=== PATIENT | female | born 1990 | race Caucasian/White ===

== ENCOUNTER → 2017-10-30 | Outpatient (REF) | payer OTHER ==
[2017-10-30 18:55] LABS: FREE T4 0.93 NG/DL (0.76-1.46)
[2017-10-30 19:02] LABS: HCG, SERUM QUANTITATIVE 13107 MIU/ML
[2017-10-31 08:23] LABS: PROGESTERONE 20.8 NG/ML
[2017-10-31 08:23] LABS: PROLACTIN 15.3 NG/ML
== END ==
LOC: M SFHCLERA 16:11
DX: Z3A.01 Less than 8 weeks gestation of pregnancy (principal)

== ENCOUNTER → 2017-11-08 | Outpatient (CLI) | payer BC, OTHER | LOC: M RAD 17:36 | DX: Z36.89 Encounter for other specified antenatal screening (principal); Z3A.01 Less than 8 weeks gestation of pregnancy | CPT/HCPCS: 76801 ==

== ENCOUNTER → 2017-12-15 | Outpatient (REF) | payer OTHER | LOC: M LAB REF 17:03 | DX: Z34.81 Encounter for supervision of other normal pregnancy, first trimester (principal) ==

== ENCOUNTER → 2018-01-18 | Outpatient (CLI) | payer OTHER | LOC: M LRY 16:32 | DX: Z36.89 Encounter for other specified antenatal screening (principal); Z3A.00 Weeks of gestation of pregnancy not specified | CPT/HCPCS: 36415 ==

== ENCOUNTER → 2018-01-27 | Outpatient (CLI) | payer BC, OTHER | LOC: M RAD 17:26 | DX: Z36.9 Encounter for antenatal screening, unspecified (principal); Z3A.18 18 weeks gestation of pregnancy | CPT/HCPCS: 76811 ==

== ENCOUNTER → 2018-02-21 | Outpatient (CLI) | payer BC, OTHER | LOC: M RAD 17:30 | DX: O32.1XX0 Maternal care for breech presentation, not applicable or unspecified (principal); Z3A.21 21 weeks gestation of pregnancy | CPT/HCPCS: 76816 ==

== ENCOUNTER → 2018-03-31 | Outpatient (CLI) | payer BC, OTHER ==
[2018-03-31 20:13] LABS: HEMATOCRIT 37.3 % (36.0-47.0); HEMOGLOBIN 12.3 g/dl (12.0-15.5); MEAN CORPUSCULAR HEMOGLOBIN 32.2 pg (27.0-33.0); MEAN CORPUSCULAR VOLUME 97.6 fl (80.0-96.0); PLATELET COUNT, AUTOMATED 234 10^3/uL (150-450); RED BLOOD COUNT 3.82 10^6/uL (4.00-5.40); RED CELL DISTRIBUTION WIDTH 12.9 % (11.5-14.5); WHITE BLOOD COUNT 11.9 10^3/uL (4.0-10.0)
[2018-03-31 20:27] LABS: GLUCOSE CHALLENGE TEST 1 HOUR 112 MG/DL (LESS THAN 140)
== END ==
LOC: M LRY 14:25
DX: Z34.82 Encounter for supervision of other normal pregnancy, second trimester (principal)
CPT/HCPCS: 82950

== ENCOUNTER → 2018-06-08 | Outpatient (REF) | payer OTHER ==
[~2018-06-08] MED LIST: IBUP60TA PO; MAPA500T2 PO
== END ==
LOC: M LAB REF 12:21
PROVIDERS: ATTEND Advanced Practice Midwife
DX: Z34.83 Encounter for supervision of other normal pregnancy, third trimester (principal)

== ENCOUNTER 2018-06-28 15:20 | Inpatient (IN) | payer BC, OTHER ==
[2018-06-28] VITALS (12 sets, daily range): BP systolic 120–146; BP diastolic 58–96
[~2018-06-28] VITALS: Ht 162.6 cm; Wt 75.4 kg
[2018-06-28] MEDS ORDERED: PRENTAB9 PO (15:39)
[2018-06-28] MEDS ORDERED: TUMS500C PO (15:39)
[2018-06-28 16:48] LABS: HEMOGLOBIN 14.1 g/dl (12.0-15.5); MEAN CORPUSCULAR HEMOGLOBIN 31.5 pg (27.0-33.0); MEAN CORPUSCULAR HGB CONC 34.4 g/dl (32.0-36.5); MEAN CORPUSCULAR VOLUME 91.5 fl (80.0-96.0); PLATELET COUNT, AUTOMATED 184 10^3/uL (150-450); RED BLOOD COUNT 4.48 10^6/uL (4.00-5.40); WHITE BLOOD COUNT 12.3 10^3/uL (4.0-10.0)
--- NOTE | 2018-06-28 16:48 | HPE ---
DATE OF ADMISSION: 06/28/2018 Marjorie is a 28-year-old 3, para 1-0-1-1 at 40-1/7 weeks gestation with an estimated date of confinement (EDC) of 06/27/2017 based on last menstrual period and confirmed by a first-trimester ultrasound. She presents to labor and delivery with report of contractions that started at 0500 this morning. They have progressively become more uncomfortable and closer together. She reports them about every 5 minutes. She does report some light pink spotting this morning. She denies leakage of fluid, and the fetus has been active throughout the day. Her care was initiated at [facility] in the first trimester. Her course complicated by a history of asthma with rare inhaler use. OBSTETRICAL HISTORY: December 2014, a 40-3/7 weeks gestation, 7-pound 13-ounce male, vaginal delivery. May 2017, spontaneous miscarriage. OBSTETRIC LABORATORIES: O positive, antibody screen negative. Pap normal, rubella immune, VDRL nonreactive. Urine culture negative. Hepatitis B surface antigen negative, HIV negative. Hepatitis C antibody nonreactive. Gonorrhea and chlamydia negative. She declined genetic serum screening labs. Gestational diabetic screening normal at 112, and her GBS is negative. PAST MEDICAL HISTORY: History of asthma. Again, rare inhaler use. SURGERIES: None. Childhood varicella. FAMILY HISTORY: Diabetes, hypertension. SOCIAL HISTORY: The patient is . Her is at bedside and supportive. She is a nonsmoker. She denies alcohol and drug use. There is no history of any sexually transmitted infections, and she denies history of abuse, physical, sexual, and emotional. ALLERGIES: SULFA. CURRENT MEDICATIONS: vitamins OBJECTIVE: Temperature 97.9, pulse 86, respirations 18. Initial blood pressure 138/93 with a repeat of 130/77. She appears mildly uncomfortable with her contractions. heart rate is 130, moderate variability. Positive accelerations. No decelerations observed. Contractions about every 5 minutes. Sterile vaginal exam: 4-5 cm dilated, 90% effaced, -1 station. Membranes are intact. Light bloody show, mid position, and soft. Her abdomen is gravid, cephalic presentation with an estimated weight of 8 pounds. ASSESSMENT: Intrauterine at 40-1/7 weeks. heart rate category 1, early latent labor. PLAN: Admit the patient to labor and delivery. Routine labs. Out of bed ad elie. Regular diet at this time. The patient is desiring physiologic labor. Declines epidural or pain medication. I have encouraged her to utilize hydrotherapy and out of bed positions. We did review discussion of potentially augmenting her labor with intravenous (IV) Pitocin or AROM if necessary . I do anticipate labor progress and a spontaneous vaginal delivery. MTDD
[2018-06-28] MEDS ORDERED: OXYTOCIN 30 UNITS IN 0.9% NaCl 500ML IV BAG (J2590) As Ordered ONE (19:31)
[2018-06-29] VITALS (7 sets, daily range): BP systolic 108–129; BP diastolic 57–81
[2018-06-29] MEDS ORDERED: OXYTOCIN DRIP 30 UNITS in APPROPRIATE DILUENT 1 EA IV SCH (00:34)
[2018-06-29] MEDS ORDERED: ACETAMINOPHEN 500 MG TAB PO PRN (00:45)
[2018-06-29] MEDS ORDERED: ONDANSETRON 4MG/2ML VIAL (J2405) IV PRN (00:45)
[2018-06-29] MEDS ORDERED: DIBUCAINE 1% OINTMENT 30GM TOP PRN (00:45)
[2018-06-29] MEDS ORDERED: METHYLERGONOVINE MALEATE 0.2 MG TAB PO PRN (00:45)
[2018-06-29] MEDS ORDERED: RHOGAM 300 MCG (1500 IU) INJ (J2790) IM SCH (00:45)
[2018-06-29] MEDS ORDERED: IBUPROFEN 800 MG TAB PO PRN (00:45)
[2018-06-29] MEDS ORDERED: DOCUSATE SODIUM 100 MG CAP PO PRN (00:45)
[2018-06-29] MEDS ORDERED: MEASLES,MUMPS,RUBELLA VACCINE INJ (MMR-II) (90707) SC SCH (00:45)
--- NOTE | 2018-06-29 06:33 | DN ---
DATE OF DELIVERY: 06/28/2018 Marjorie is a 28-year-old 3, para 2-0-1-2 now who was admitted to labor and delivery in labor. She coped with her labor physiologically. She had assisted rupture of membranes at 2030. She did reach full dilation at 2304. She pushed to a normal spontaneous vaginal delivery of a live female in OA position with restitution to ROT position at 231. There was a nuchal cord times one tight that was reduced with a somersault maneuver at the time of delivery. was placed on maternal abdomen crying and active. Mouth and nares were bulb suctioned. The cord was clamped times two once pulsations ceased and cut by the father of the baby under my direction. Manual removal of an intact placenta with three-vessel cord by Chen mechanism was at 2330. Uterine hemostasis achieved with IV Pitocin rapid infusion and uterine fundal massage. Her bladder was straight cath for 200 mL of dark yellow urine. Perineum and vagina were inspected and noted to be intact. female weighed 3660 grams, 8 pounds 1 ounce, 8 and 9. Mom is going to breastfeed her daughter. The family is undecided as to what they are going to name their daughter at this time. At the close of delivery, lap counts, needle counts and instrument counts were correct and verified.
[2018-06-29] MEDS: PRENATAL VITAMINS CHEWABLE TABLET PO SCH (09:42)
[2018-06-30 06:00] VITALS: BP 120/68
[2018-06-30] MEDS: PRENATAL VITAMINS CHEWABLE TABLET PO SCH (07:33)
[2018-06-30] MEDS ORDERED: IBUP-1114 PO (10:07)
[2018-06-30] MEDS ORDERED: COLA100C5 PO (10:07)
[2018-06-30] MEDS ORDERED: MAPA500T2 PO (10:07)
== END 2018-06-30 13:10 | disposition home or self-care (01) | DRG 541 ==
LOC: M LDO 15:20 → M LDI 16:04 → M OBS 06-29 01:36
PROVIDERS: ADMIT Advanced Practice Midwife; ATTEND Advanced Practice Midwife
PROC: 10E0XZZ Delivery of Products of Conception, External Approach (ICD-10-PCS; principal; 2018-06-28)
PROC: 10D17Z9 Manual Extraction of Products of Conception, Retained, Via Natural or Artificial Opening (ICD-10-PCS; 2018-06-28)
PROC: 10907ZC Drainage of Amniotic Fluid, Therapeutic from Products of Conception, Via Natural or Artificial Opening (ICD-10-PCS; 2018-06-28)
DX: O48.0 Post-term pregnancy (principal); O69.89X0 Labor and delivery complicated by other cord complications, not applicable or unspecified; Z37.0 Single live birth; Z3A.40 40 weeks gestation of pregnancy; O73.0 Retained placenta without hemorrhage

== ENCOUNTER → 2018-09-19 | Outpatient (REF) | payer BC, OTHER ==
[~2018-09-19] MED LIST changes: +COLA100C5 PO; +IBUP-1114 PO; +IBUP600T42 PO; -IBUP60TA PO; +PRENTAB9 PO; +TUMS500C PO
== END ==
LOC: M LAB REF 17:52
PROVIDERS: ATTEND Advanced Practice Midwife
DX: Z12.4 Encounter for screening for malignant neoplasm of cervix (principal)

== ENCOUNTER → 2019-07-31 | Outpatient (CLI) | payer BC, OTHER ==
--- NOTE | 2019-07-31 19:53 | REPVR ---
PROCEDURE INFORMATION: Exam: MR Head Without Contrast Exam date and time: 07/31/2019 7:05 PM Age: 29 years old Clinical indication: Pain; Headache not specified; Patient HX: PT states h/a; Additional info: Migraine w/ ora TECHNIQUE: Imaging protocol: MR of the head without contrast. COMPARISON: No relevant prior studies available. FINDINGS: Ventricles demonstrate normal size and configuration. Major vascular flow voids at the skull base are preserved. No extra-axial fluid collection. No midline shift or intracranial mass effect. No pathologic white-matter signal or cerebral edema. No diffusion restriction. Visualized paranasal sinuses and mastoid air cells are clear. IMPRESSION: Unremarkable MRI of the brain without contrast. Electronically signed by: Keron Fields On 07/31/2019 19:53:17 PM
== END ==
LOC: M RAD 18:06
PROVIDERS: ATTEND Family Medicine
DX: G43.109 Migraine with aura, not intractable, without status migrainosus (principal)

== ENCOUNTER → 2019-12-03 | Outpatient (REF) | payer OTHER | LOC: M SFHCWAGY 17:08 | PROVIDERS: ATTEND Advanced Practice Midwife | DX: Z12.4 Encounter for screening for malignant neoplasm of cervix (principal); R87.610 Atypical squamous cells of undetermined significance on cytologic smear of cervix (ASC-US) | CPT/HCPCS: 87624; G0123 ==

== ENCOUNTER → 2021-03-27 | Outpatient (CLI) | payer OTHER ==
[2021-03-27 14:34] LABS: BASO % 0.2 % (0.0-1.0); EOS % 0.3 % (0.0-3.0); HEMATOCRIT 42.9 % (36.0-47.0); HEMOGLOBIN 14.5 g/dl (12.0-15.5); MEAN CORPUSCULAR HEMOGLOBIN 30.7 pg (27.0-33.0); MEAN CORPUSCULAR HGB CONC 33.8 g/dl (32.0-36.5); MEAN CORPUSCULAR VOLUME 90.9 fl (80.0-96.0); MONO # 0.7 10^3/uL (0.0-0.8); MONO % 5.2 % (2.0-8.0); NEUTROPHILS # 10.6 10^3/uL (1.5-8.5); NEUTROPHILS % 78.9 % (36.0-66.0); PLATELET COUNT, AUTOMATED 282 10^3/uL (150-450); RED BLOOD COUNT 4.72 10^6/uL (4.00-5.40); WHITE BLOOD COUNT 13.4 10^3/uL (4.0-10.0)
[2021-03-27 15:43] LABS: HEPATITIS C VIRUS ABY INDEX < 0.0 INDEX (<0.8); HIV 1&2 SCREEN CENTAUR NEGATIVE (NEGATIVE)
[2021-03-27 15:52] LABS: GC DNA AMPLIFICATION NEGATIVE (NEGATIVE)
== END ==
LOC: M PLALAB 10:20
PROVIDERS: ATTEND Advanced Practice Midwife
DX: Z34.91 Encounter for supervision of normal pregnancy, unspecified, first trimester (principal)

== ENCOUNTER → 2021-06-10 | Outpatient (CLI) | payer BC, OTHER ==
--- NOTE | 2021-06-10 09:49 | REP ---
INDICATION: ANATOMY COMPARISON: None. TECHNIQUE: Transabdominal obstetrical ultrasound with color Doppler evaluation. FINDINGS: Examination demonstrates a single live intrauterine in variable presentation. motion is identified by technologist. Placenta is noted anterior and grade 0 without evidence for placenta previa or abruption. Amniotic fluid volume is normal. Cervix measures 4.7 cm in length and appears closed.. Selected gestational age: 20 weeks 3 days with BONNY 10/25/2021. Gestational age by current measurements 20 weeks 2 days with BONNY 10/26/2021. FHR equals 150 beats per minute. Estimated weight 324 grams (23rdpercentile). Anatomical assessment demonstrates normal structures including cranium, choroid plexus, cavum, cerebellum/posterior fossa, facial features, lungs, four-chamber heart/ventricular outflow tracts, diaphragm, stomach, cord insertion/three-vessel cord, kidneys/bladder, spine, and extremities. IMPRESSION: Single live intrauterine in variable presentation demonstrating appropriate estimated weight/growth. Anatomical assessment is complete and normal. <Electronically signed by Daniel Tejada > 06/10/21 0906
== END ==
LOC: M WHC 08:04
PROVIDERS: ATTEND Advanced Practice Midwife
DX: Z34.92 Encounter for supervision of normal pregnancy, unspecified, second trimester (principal); Z3A.20 20 weeks gestation of pregnancy

== ENCOUNTER → 2021-10-09 | Outpatient (REF) | payer BC, OTHER | LOC: M SFHCWAGY 13:11 | PROVIDERS: ATTEND Obstetrics & Gynecology | DX: Z36.85 Encounter for antenatal screening for Streptococcus B (principal) ==

== ENCOUNTER 2021-10-28 23:01 | Inpatient (IN) | payer BC, OTHER ==
[~2021-10-28] VITALS: Ht 162.6 cm; Wt 77.3 kg
[2021-10-28] MEDS ORDERED: HOME MED LIST COMPLETE! XX SCH (23:25)
[2021-10-28 23:27] VITALS: BP 133/76
[2021-10-28] MEDS ORDERED: TRANEXAMIC ACID INJection 1,000 MG in NS 100 ML IV PRN (23:55)
[2021-10-28] MEDS ORDERED: LIDOCAINE 1% MDV 20ML VIAL INFIL PRN (23:55)
[2021-10-28] MEDS ORDERED: OXYTOCIN DRIP 30 UNITS in IV 1 EA IV PRN ×4 (23:55)
[2021-10-28] MEDS ORDERED: OXYTOCIN INJ 10 UNITS/ML VIAL (J2590) IM PRN (23:55)
[2021-10-28] MEDS ORDERED: CARBOPROST TROMETHAMINE 250 MCG/ML AMP IM PRN (23:55)
[2021-10-28] MEDS ORDERED: METHYLERGONOVINE MALEATE 0.2 MG/ML VIAL (J2210) IM PRN (23:55)
[2021-10-29] VITALS (10 sets, daily range): BP systolic 117–163; BP diastolic 67–87
[2021-10-29 00:24] LABS: HEMATOCRIT 37.2 % (36.0-47.0); HEMOGLOBIN 12.6 g/dl (12.0-15.5); MEAN CORPUSCULAR HEMOGLOBIN 29.7 pg (27.0-33.0); MEAN CORPUSCULAR HGB CONC 33.9 g/dl (32.0-36.5); MEAN CORPUSCULAR VOLUME 87.7 fl (80.0-96.0); PLATELET COUNT, AUTOMATED 190 10^3/uL (150-450); RED BLOOD COUNT 4.24 10^6/uL (4.00-5.40); WHITE BLOOD COUNT 16.3 10^3/uL (4.0-10.0)
[2021-10-29] MEDS ORDERED: OXYTOCIN 30 UNITS IN 0.9% NaCl 500ML IV BAG (J2590) As Ordered ONE (01:46)
[2021-10-29] MEDS ORDERED: RHOGAM 300 MCG (1500 IU) INJ (J2790) IM SCH (04:10)
[2021-10-29] MEDS ORDERED: ACETAMINOPHEN 500 MG TAB PO PRN (04:10)
[2021-10-29] MEDS ORDERED: IBUPROFEN 600MG TAB PO PRN (04:10)
[2021-10-29] MEDS ORDERED: MEASLES,MUMPS,RUBELLA VACCINE INJ (MMR-II) (90707) SC SCH (04:10)
[2021-10-29] MEDS ORDERED: DIBUCAINE 1% OINTMENT 30GM TOP PRN (04:10)
[2021-10-29] MEDS ORDERED: ACETAMINOPHEN TAB 650MG DOSE (2X325MG) PO PRN (04:10)
[2021-10-29] MEDS ORDERED: METHYLERGONOVINE MALEATE 0.2 MG TAB PO PRN (04:10)
[2021-10-29] MEDS ORDERED: DOCUSATE SODIUM 100MG CAPSULE PO PRN (04:10)
[2021-10-29] MEDS ORDERED: ANUSOL HC CREAM 30GM TOP PRN (04:10)
[2021-10-29] MEDS ORDERED: IBUPROFEN 800 MG TAB PO PRN (04:10)
[2021-10-29] MEDS ORDERED: OXYTOCIN INJ 10 UNITS/ML VIAL (J2590) IM ONE (04:35)
[2021-10-29] MEDS: PRENATAL VITAMINS CHEWABLE TABLET PO SCH (07:56)
[2021-10-30 06:08] VITALS: BP 144/83
[2021-10-30] MEDS: PRENATAL VITAMINS CHEWABLE TABLET PO SCH (08:56)
== END 2021-10-30 12:41 | disposition home or self-care (01) | DRG 560 ==
LOC: M LDO 23:01 → M LDI 23:56 → M OBS 10-29 05:54
PROVIDERS: ADMIT Advanced Practice Midwife; ATTEND Advanced Practice Midwife
PROC: 10E0XZZ Delivery of Products of Conception, External Approach (ICD-10-PCS; principal; 2021-10-29)
DX: O48.0 Post-term pregnancy (principal); Z88.2 Allergy status to sulfonamides; Z37.0 Single live birth; Z3A.40 40 weeks gestation of pregnancy

== ENCOUNTER → 2023-06-21 | Outpatient (CLI) | payer BC, OTHER ==
[2023-06-21 15:57] LABS: HEMATOCRIT 42.5 % (36.0-47.0); MEAN CORPUSCULAR HEMOGLOBIN 30.2 pg (27.0-33.0); MEAN CORPUSCULAR HGB CONC 32.9 g/dl (32.0-36.5); MEAN CORPUSCULAR VOLUME 91.6 fl (80.0-96.0); PLATELET COUNT, AUTOMATED 279 10^3/uL (150-450); RED BLOOD COUNT 4.64 10^6/uL (4.00-5.40); WHITE BLOOD COUNT 12.2 10^3/uL (4.0-10.0)
[2023-06-21 16:34] LABS: HIV 1&2 SCREEN NEGATIVE (NEGATIVE)
[2023-06-21 16:43] LABS: HEPATITIS C VIRUS ABY INDEX < 0.02 INDEX (<0.8)
[2023-06-21 17:09] LABS: CHLAMYDIA DNA AMPLIFICATION NEGATIVE (NEGATIVE); GC DNA AMPLIFICATION NEGATIVE (NEGATIVE)
== END ==
LOC: M PLALAB 14:01
PROVIDERS: ATTEND Advanced Practice Midwife
DX: Z34.91 Encounter for supervision of normal pregnancy, unspecified, first trimester (principal)

== ENCOUNTER → 2023-08-08 | Outpatient (CLI) | payer BC, OTHER | LOC: M WHC 10:24 | PROVIDERS: ATTEND Advanced Practice Midwife | DX: Z34.92 Encounter for supervision of normal pregnancy, unspecified, second trimester (principal); Z3A.19 19 weeks gestation of pregnancy ==

== ENCOUNTER → 2023-08-29 | Outpatient (CLI) | payer BC | LOC: M WHC 11:46 | PROVIDERS: ATTEND Advanced Practice Midwife | DX: Z34.92 Encounter for supervision of normal pregnancy, unspecified, second trimester (principal); Z3A.22 22 weeks gestation of pregnancy ==

== ENCOUNTER → 2023-09-26 | Outpatient (CLI) | payer BC ==
[2023-09-26 12:31] LABS: GLUCOSE CHALLENGE TEST 1 HOUR 109 MG/DL (LESS THAN 140); HEMATOCRIT 38.5 % (36.0-47.0); HEMOGLOBIN 12.9 g/dl (12.0-15.5); MEAN CORPUSCULAR HEMOGLOBIN 31.9 pg (27.0-33.0); MEAN CORPUSCULAR HGB CONC 33.5 g/dl (32.0-36.5); MEAN CORPUSCULAR VOLUME 95.3 fl (80.0-96.0); PLATELET COUNT, AUTOMATED 202 10^3/uL (150-450); RED BLOOD COUNT 4.04 10^6/uL (4.00-5.40)
== END ==
LOC: M PLALAB 10:06
PROVIDERS: ATTEND Advanced Practice Midwife
DX: Z34.92 Encounter for supervision of normal pregnancy, unspecified, second trimester (principal)

== ENCOUNTER → 2023-12-09 | Outpatient (REF) | payer BC | LOC: M PLALAB 10:57 | PROVIDERS: ATTEND Advanced Practice Midwife | DX: Z34.93 Encounter for supervision of normal pregnancy, unspecified, third trimester (principal) ==

== ENCOUNTER → 2025-01-07 | Outpatient (REF) | payer OTHER ==
[~2025-01-07] MED LIST changes: +IBUP80TA PO
[2025-01-10 15:02] LABS: HPV APTIMA Not Detected (Not Detected)
== END ==
LOC: M SFHCWAGY 10:13
PROVIDERS: ATTEND Advanced Practice Midwife
DX: Z12.4 Encounter for screening for malignant neoplasm of cervix (principal)
CPT/HCPCS: 87624; G0123